=== PATIENT | female | born 1950 | race Caucasian/White ===

== ENCOUNTER 2016-12-15 12:44 | Emergency (ER) | payer MEDICARE ==
[~2016-12-15] VITALS: Ht 162.6 cm; Wt 67.1 kg
[~2016-12-15 12:44] MED LIST: ALPR.5 PO; GLUC500C5 PO; MELAPOW2; MULT-135 PO; NAPR220T95 PO; OMEP20CA2; RED600TA; TOPR25TA PO; VITATAB56 PO
[2016-12-15 12:53] VITALS: BP 169/80; PULSE 87; RESP 18; TEMP 98.8; O2SAT 99
--- NOTE | 2016-12-15 13:22 | PD ---
HPI Chief Complaint: Respiratory Symptoms Time Seen by Provider: 13:12 Travel History International Travel<30 days: No Contact w/Intl Traveler<30days: No Traveled to known affect area: No History of Present Illness HPI This patient woke up this morning feeling anxious. She complained of some shortness of breath and nausea and headache and achiness throughout. Symptoms severity was moderate. A lot of the symptoms have resolved. No cough or fever or hemoptysis or chest pain. Symptoms severity at this time is mild. No alleviating factors. Duration 4 hours PFSH Past Medical History Anxiety: Yes Heart Rhythm Problems: Yes Cancer: No Cardiovascular Problems: Yes (MITRAL VALVE REGURG., TACHYARRHYTHMIA, HX PE) Diabetes: No Diminished Hearing: No Endocrine: No Gastrointestinal Disorders: Yes (GERD) GERD: Yes Genitourinary: No Headaches: Yes Hepatitis: No Hiatal Hernia: Yes (SMALL) Hypertension: No Immune Disorder: No Medical other: No Musculoskeletal: Yes (ARTHRITIS, OSTEOPENIA) Neurologic: Yes (PAIN REBECCA. 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 / ACDF C4 C5 C6) Social History Alcohol Use: Yes (2 x a week) Tobacco Use: No (quit 15 years) Substance Use: No Allergies-Medications (Allergen,Severity, Reaction): Coded Allergies: codeine (Unverified Allergy, Unknown, NAUSEA, VOMITTING, 12/15/16) meperidine (Unverified Allergy, Unknown, NAUSEA, VOMITTING, 12/15/16) Reported Meds & Prescriptions Reported Meds & Active Scripts Active Reported Xanax (Alprazolam) 0.5 Mg Tab 0.5 Mg PO Q4H PRN Toprol XL (Metoprolol Succinate) 25 Mg Tab 25 Mg PO DAILY Review of Systems General / Constitutional: No: Fever Eyes: No: Visual changes HENT: Positive: Headaches Cardiovascular: No: Chest Pain or Discomfort Respiratory: Positive: Shortness of Breath Gastrointestinal: Positive: Nausea, No: Abdominal Pain Genitourinary: No: Dysuria Musculoskeletal: Positive: Myalgias, Cramping, No: Pain Skin: No Rash Neurologic: No: Weakness Psychiatric: No: Depression Endocrine: No: Polydipsia Hematologic/Lymphatic: No: Easy Bruising Physical Exam Narrative GENERAL: Well-nourished, well-developed patient in no apparent distress. SKIN: Focused skin assessment reveals no rash and nodules. Skin is Warm and dry. HEAD: Atraumatic. Normocephalic. EYES: Pupils equal and round. No scleral icterus. No injection or drainage. ENT: No nasal bleeding or discharge. Mucous membranes pink and moist. NECK: Trachea midline. No JVD. CARDIOVASCULAR: Regular rate and rhythm. No murmur appreciated. RESPIRATORY: No accessory muscle use. Clear to auscultation. Breath sounds equal bilaterally. GASTROINTESTINAL: Abdomen soft, non-tender, nondistended. Hepatic and splenic margins not palpable. MUSCULOSKELETAL: No obvious deformities. No clubbing. No cyanosis. No edema. NEUROLOGICAL: Awake and alert. No obvious cranial nerve deficits. Motor grossly within normal limits. Normal speech. PSYCHIATRIC: Anxious mood and affect; insight and judgment normal. Data Data Last Documented VS Vital Signs Date Time Temp Pulse Resp B/P (MAP) Pulse Ox O2 Delivery O2 Flow Rate FiO2 12/15/16 15:06 73 16 128/73 (91) 96 12/15/16 12:53 98.8 Orders Orders Chest, Single Ap (12/15/16 ) [facility] Medical Decision Making Medical Screen Exam Complete: Yes Emergency Medical Condition: Yes Medical Record Reviewed: Yes Differential Diagnosis Pneumothorax, pleural effusion, panic attack, anxiety Narrative Course I have reviewed the patient's electronic medical record. Reviewed her chest x-ray, shows nothing emergent. Radiologist notation has been read. No clinical suspicion of CHF She has clear lungs with room air saturation of 100% without tachycardia or fever I don't have any clinical suspicion of PE I think some of her symptoms are anxiety driven. Stable for outpatient follow- up Diagnosis Primary Impression: Shortness of breath Additional Impressions: Elevated blood pressure reading Anxiety Additional Instructions: The patient was advised to follow up with their physician and return if they worsen. Med/Other Pt SpecificInfo: Other Disposition: 01 DISCHARGE HOME Condition: Stable Jean Claude Stone MD Dec 15, 2016 13:22
--- NOTE | 2016-12-15 13:45 | RADRPT ---
EXAM DATE/TIME: 12/15/2016 13:37 [facility] COMPARISON: No previous studies available for comparison. INDICATIONS : Short of breath MEDICAL HISTORY : None. SURGICAL HISTORY : Spinal ENCOUNTER: Initial ACUITY: 1 day PAIN SCORE: 0/10 LOCATION: Bilateral chest FINDINGS: Mild interstitial prominence is present. The cardiomediastinal contours are unremarkable. Osseous s tructures are intact. CONCLUSION: Mild interstitial prominence mostly in the bases without other findings of congestive failure. Dennis Rodriges MD FACR on December 15, 2016 at 13:42 Board Certified Radiologist. This report was verified electronically.
[2016-12-15 15:06] VITALS: BP 128/73; PULSE 73; RESP 16; O2SAT 96
== END 2016-12-15 15:30 | disposition home or self-care (01) ==
LOC: PHED 12:44
DX: R06.02 Shortness of breath (principal); R03.0 Elevated blood-pressure reading, without diagnosis of hypertension; F41.9 Anxiety disorder, unspecified; R11.0 Nausea; R51 Headache; M79.1 Myalgia; E07.9 Disorder of thyroid, unspecified; Z86.59 Personal history of other mental and behavioral disorders; Z86.79 Personal history of other diseases of the circulatory system; Z87.19 Personal history of other diseases of the digestive system; Z87.39 Personal history of other diseases of the musculoskeletal system and connective tissue; Z86.69 Personal history of other diseases of the nervous system and sense organs
CPT/HCPCS: 71010; 99283

== ENCOUNTER 2017-04-10 10:59 | Emergency (ER) | payer MEDICARE ==
[~2017-04-10] VITALS: Ht 162.6 cm; Wt 64.0 kg
[~2017-04-10 10:59] MED LIST changes: -GLUC500C5 PO; -MELAPOW2; -MULT-135 PO; -NAPR220T95 PO; -OMEP20CA2; -RED600TA; -VITATAB56 PO
[2017-04-10 11:12] VITALS: BP 121/69; PULSE 77; RESP 16; TEMP 97.6; O2SAT 98
[2017-04-10 11:36] VITALS: BP 139/78; PULSE 84; RESP 18; O2SAT 98
[2017-04-10] MEDS ORDERED: OMEP20TA93 PO (11:36)
[2017-04-10] MEDS ORDERED: AUGM875T3 PO (11:36)
[2017-04-10] MEDS ORDERED: SODIUM CHLOR 0.9% 1000 ML INJ 1,000 ML IV SCH (11:39)
[2017-04-10] MEDS ORDERED: ONDANSETRON HCL 4 MG/2 ML VIAL IVP ONE (11:45)
[2017-04-10] MEDS ORDERED: KETOROLAC TROMETHAMINE 30 MG/ML (IVP) VIAL IVP ONE (11:45)
[2017-04-10] MEDS ORDERED: MORPHINE SULFATE 4 MG/ML INJ IV PUSH ONE (11:45)
[2017-04-10] MEDS ORDERED: SODIUM CHLORIDE 0.9% FLUSH 10 ML FLUSH IV FLUSH PRN (11:45)
[2017-04-10 11:59] VITALS: O2SAT 98
[2017-04-10 12:21] VITALS: BP 134/61; PULSE 79; RESP 18; O2SAT 96
[2017-04-10 12:25] LABS: CHLORIDE 106 MEQ/L (98-107); SODIUM (NA) 140 MEQ/L (136-145)
[2017-04-10 12:26] LABS: AUTOMATED NEUTROPHIL # 3.3 TH/MM3 (1.8-7.7); BASOPHIL # 0.1 TH/MM3 (0-0.2); BASOPHIL % 0.9 % (0.0-2.0); EOSINOPHIL # 0.2 TH/MM3 (0-0.4); EOSINOPHIL % 4.1 % (0.0-4.0); HEMATOCRIT 41.4 % (35.0-46.0); HEMOGLOBIN 13.3 GM/DL (11.6-15.3); LYMPH % 32.7 % (9.0-44.0); MEAN CELL VOLUME 93.7 FL (80.0-100.0); MEAN CORPUSCULAR HEMOGLOBIN 30.1 PG (27.0-34.0); MEAN CORPUSCULAR HGB CONC 32.1 % (32.0-36.0); MEAN PLATELET VOLUME 9.1 FL (7.0-11.0); MONO % 8.4 % (0.0-8.0); MONOCYTE # 0.5 TH/MM3 (0-0.9); NEUT % 53.9 % (16.0-70.0); PLATELET COUNT 236 TH/MM3 (150-450); RED BLOOD COUNT 4.41 MIL/MM3 (4.00-5.30); RED CELL DISTRIBUTION WIDTH 14.2 % (11.6-17.2); WHITE BLOOD COUNT 6.1 TH/MM3 (4.0-11.0)
[2017-04-10 12:29] LABS: ALBUMIN 3.8 GM/DL (3.4-5.0); BICARBONATE 27.2 MEQ/L (21.0-32.0); BLOOD UREA NITROGEN 12 MG/DL (7-18); CALCIUM 9.2 MG/DL (8.5-10.1); GLUCOSE,RANDOM 97 MG/DL (74-106)
[2017-04-10 12:30] LABS: INTERNATIONAL NORMALIZED RATIO 0.9 RATIO; PROTHROMBIN TIME - PATIENT 9.6 SEC (9.8-11.6)
[2017-04-10 12:32] LABS: ALT (GPT) 37 U/L (10-53); AST (GOT) 32 U/L (15-37)
[2017-04-10 12:33] LABS: CREATININE 0.67 MG/DL (0.50-1.00); GLOMERULAR FILTRATION RATE 88 ML/MIN (>89)
[2017-04-10 12:33] LABS: BILIRUBIN, URINE NEG (NEG); BLOOD, URINE NEG (NEG); GLUCOSE,URINE NEG (NEG); KETONE, URINE NEG (NEG); NITRITE,URINE NEG (NEG); PH, URINE 8.5 (5.0-8.5); URINE LEUKOCYTE ESTERASE NEG (NEG)
[2017-04-10 12:34] LABS: TOTAL BILIRUBIN ADULT 0.4 MG/DL (0.2-1.0); TOTAL PROTEIN 7.7 GM/DL (6.4-8.2)
[2017-04-10 12:34] LABS: URINE COLOR STRAW (YELLW/STRAW)
[2017-04-10 12:35] LABS: ALKALINE PHOSPHATASE 80 U/L (45-117)
[2017-04-10 12:41] LABS: SQUAMOUS EPITHELIAL CELL URINE 0-5 /hpf (0-5)
--- NOTE | 2017-04-10 13:06 | PD ---
HPI Chief Complaint: Abdominal Pain Time Seen by Provider: 11:27 Travel History International Travel<30 days: No Contact w/Intl Traveler<30days: No Traveled to known affect area: No History of Present Illness HPI Patient is a 67-year-old female who comes in complaining of left-sided abdominal pain. She says it radiates from her left flank into the left upper abdomen. She says it started today, and is severe. She says that she is unable to sit in any way that is comfortable due to the pain. She tried taking Xanax at home to help her relax and deal with the pain. She says this has not helped. She has not taken any pain medicine. She denies nausea or vomiting. She denies diarrhea and has been having normal bowel movements. She denies any urinary symptoms. She denies fever or chills. PFSH Past Medical History Anxiety: Yes Heart Rhythm Problems: Yes Cancer: No Cardiovascular Problems: Yes (MITRAL VALVE REGURG., TACHYARRHYTHMIA, HX PE) Diabetes: No Diminished Hearing: No Endocrine: No Gastrointestinal Disorders: Yes (GERD) GERD: Yes Genitourinary: No Headaches: Yes Hepatitis: No Hiatal Hernia: Yes (SMALL) Hypertension: No Immune Disorder: No Musculoskeletal: Yes (ARTHRITIS, OSTEOPENIA) Neurologic: Yes (PAIN REBECCA. 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 / ACDF C4 C5 C6) Social History Alcohol Use: Yes (2 x a week) Tobacco Use: No (quit 15 years) Substance Use: No Allergies-Medications (Allergen,Severity, Reaction): Coded Allergies: codeine (Unverified Allergy, Unknown, NAUSEA, VOMITTING, 04/10/17) meperidine (Unverified Allergy, Unknown, NAUSEA, VOMITTING, 04/10/17) Reported Meds & Prescriptions Reported Meds & Active Scripts Active Reported Omeprazole 20 Mg Tab 20 Mg PO DAILY Augmentin (Amoxicillin-Clavulanate) 875-125 Mg Tab 1 Tab PO BID Review of Systems Except as stated in HPI: all other systems reviewed are Neg General / Constitutional: No: Fever, Chills HENT: No: Headaches, Lightheadedness Cardiovascular: No: Chest Pain or Discomfort Respiratory: No: Shortness of Breath Gastrointestinal: Positive: Abdominal Pain, No: Nausea, Vomiting Genitourinary: Positive: Flank Pain, No: Dysuria Musculoskeletal: No: Myalgias, Edema Skin: No Rash Neurologic: No: Weakness, Dizziness Physical Exam Narrative GENERAL: Awake and alert, in no acute distress. SKIN: Focused skin assessment warm/dry. No wounds or signs of infection. HEAD: Atraumatic. Normocephalic. EYES: Pupils equal and round. No scleral icterus. ENT: No nasal bleeding or discharge. Mucous membranes pink and moist. NECK: Trachea midline. No JVD. CARDIOVASCULAR: Regular rate and rhythm. No murmur appreciated. RESPIRATORY: No accessory muscle use. Clear to auscultation. Breath sounds equal bilaterally. GASTROINTESTINAL: Abdomen soft, nondistended. Tender to palpation of the left upper quadrant. No rebound or guarding. MUSCULOSKELETAL: No obvious deformities. No clubbing. No cyanosis. No edema. NEUROLOGICAL: Awake and alert. No obvious cranial nerve deficits. Motor grossly within normal limits. Normal speech. PSYCHIATRIC: Appropriate mood and affect; insight and judgment normal. Data Data Last Documented VS Vital Signs Date Time Temp Pulse Resp B/P (MAP) Pulse Ox O2 Delivery O2 Flow Rate FiO2 04/10/17 13:27 73 18 109/59 (76) 98 Room Air 04/10/17 11:12 97.6 Orders Orders Urinalysis - C+S If Indicated (04/10/17 11:01) Complete Blood Count With Diff (04/10/17 11:39) Comprehensive Metabolic Panel (04/10/17 11:39) Prothrombin Time / Inr (Pt) (04/10/17 11:39) Act Partial Throm Time (Ptt) (04/10/17 11:39) Ct Abd/Pel W/O Iv Contrast (04/10/17 11:39) Iv Access Insert/Monitor (04/10/17 11:39) Ecg Monitoring (04/10/17 11:39) Oximetry (04/10/17 11:39) Morphine Inj (Morphine Inj) (04/10/17 11:45) Ondansetron Inj (Zofran Inj) (04/10/17 11:45) Sodium Chlor 0.9% 1000 Ml Inj (Ns 1000 M (04/10/17 11:39) Sodium Chloride 0.9% Flush (Ns Flush) (04/10/17 11:45) Ketorolac Inj (Toradol Inj) (04/10/17 11:45) Labs Laboratory Tests Test 04/10/17 11:55 04/10/17 12:10 White Blood Count 6.1 TH/MM3 Red Blood Count 4.41 MIL/MM3 Hemoglobin 13.3 GM/DL Hematocrit 41.4 % Mean Corpuscular Volume 93.7 FL Mean Corpuscular Hemoglobin 30.1 PG Mean Corpuscular Hemoglobin Concent 32.1 % Red Cell Distribution Width 14.2 % Platelet Count 236 TH/MM3 Mean Platelet Volume 9.1 FL Neutrophils (%) (Auto) 53.9 % Lymphocytes (%) (Auto) 32.7 % Monocytes (%) (Auto) 8.4 % Eosinophils (%) (Auto) 4.1 % Basophils (%) (Auto) 0.9 % Neutrophils # (Auto) 3.3 TH/MM3 Lymphocytes # (Auto) 2.0 TH/MM3 Monocytes # (Auto) 0.5 TH/MM3 Eosinophils # (Auto) 0.2 TH/MM3 Basophils # (Auto) 0.1 TH/MM3 CBC Comment DIFF FINAL Differential Comment Prothrombin Time 9.6 SEC Prothromb Time International Ratio 0.9 RATIO Activated Partial Thromboplast Time 28.2 SEC Blood Urea Nitrogen 12 MG/DL Creatinine 0.67 MG/DL Random Glucose 97 MG/DL Total Protein 7.7 GM/DL Albumin 3.8 GM/DL Calcium Level 9.2 MG/DL Alkaline Phosphatase 80 U/L Aspartate Amino Transf (AST/SGOT) 32 U/L Alanine Aminotransferase (ALT/SGPT) 37 U/L Total Bilirubin 0.4 MG/DL Sodium Level 140 MEQ/L Potassium Level 4.3 MEQ/L Chloride Level 106 MEQ/L Carbon Dioxide Level 27.2 MEQ/L Anion Gap 7 MEQ/L Estimat Glomerular Filtration Rate 88 ML/MIN Urine Collection Type CLEAN CATCH Urine Color STRAW Urine Turbidity CLEAR Urine pH 8.5 Urine Specific [place] 1.005 Urine Protein NEG mg/dL Urine Glucose (UA) NEG mg/dL Urine Ketones NEG mg/dL Urine Occult Blood NEG Urine Nitrite NEG Urine Bilirubin NEG Urine Leukocyte Esterase NEG Urine Squamous Epithelial Cells 0-5 /hpf Microscopic Urinalysis Comment CULT NOT INDICATED MDM Medical Decision Making Medical Screen Exam Complete: Yes Emergency Medical Condition: Yes Medical Record Reviewed: Yes Differential Diagnosis UTI versus pyelonephritis versus renal stone versus diverticulitis versus colitis Narrative Course Patient is a 67-year-old female who comes in complaining of left side pain. Exam shows some tenderness to left upper quadrant. IV established, labs sent. Labs show no acute abnormalities. CT abdomen and pelvis performed shows no acute abnormalities. Patient given IV fluids, morphine, Zofran. She reports feeling better. This is likely a muscle strain as she says the pain mostly comes on with moving. She'll be discharged with prescriptions for pain medicine. Advised to take Aleve at home. Advised follow-up with her doctor. Advised to return to the ED as needed for any worsening symptoms. Diagnosis Primary Impression: Abdominal pain Qualified Codes: R10.12 - Left upper quadrant pain Additional Impression: Muscle strain Patient Instructions: Abdominal Pain (ED), General Instructions, Muscle Strain (ED) Additional Instructions: Take pain medicine as needed. Follow-up with your doctor. Return to the ED as needed for any worsening symptoms. Scripts Cyclobenzaprine (Flexeril) 10 Mg Tab 10 MG PO TID for Muscle Spasm, #10 TAB 0 Refills Prov: Lucila Otero MD 04/10/17 Hydrocodone-Acetaminophen Liq (Hydrocodone-Acetaminophen Liq) 7.5-325 Mg/15 Ml Soln 10 ML PO Q6H Y for PAIN for 3 Days, #120 ML 0 Refills Prov: Lucila Otero MD 04/10/17 Disposition: 01 DISCHARGE HOME Condition: Stable Lucila Otero MD Apr 10, 2017 13:06
--- NOTE | 2017-04-10 13:11 | RADRPT ---
EXAM DATE/TIME: 04/10/2017 12:46 [facility] COMPARISON: No previous studies available for comparison. INDICATIONS : Left upper quadrant/flank pain. ORAL CONTRAST: No oral contrast ingested. RADIATION DOSE: 13.15 CTDIvol (mGy) MEDICAL HISTORY : Hernia, hiatal. SURGICAL HISTORY : Hysterectomy. ENCOUNTER: Initial ACUITY: 1 day PAIN SCALE: 7/10 LOCATION: Bilateral flank TECHNIQUE: Volumetric scanning of the abdomen and pelvis was performed. Using automated exposure control and ad justment of the mA and/or kV according to patient size, radiation dose was kept as low as reasonably achievable to obtain optimal diagnostic quality images. DICOM format image data is available electro nically for review and comparison. FINDINGS: LOWER LUNGS: The visualized lower lungs are clear. LIVER: Homogeneous density without lesion. There is no dilation of the biliary tree. No calcified gallston es. SPLEEN: Normal size without lesion. PANCREAS: Within normal limits. KIDNEYS: Normal in size and shape. There is no mass, stone, or hydronephrosis. ADRENAL GLANDS: Adreniform enlargement of the adrenal glands. VASCULAR: There is no aortic aneurysm. BOWEL/MESENTERY: The stomach, small bowel, and colon demonstrate no acute abnormality. Scattered colonic diverticula without significant inflammatory change to suggest diverticulitis. There is no free intraperitoneal a ir or fluid. ABDOMINAL WALL: Small fat containing periumbilical intra-abdominal wall hernia. RETROPERITONEUM: There is no lymphadenopathy. BLADDER: No wall thickening or mass. REPRODUCTIVE: Within normal limits. INGUINAL: There is no lymphadenopathy or hernia. MUSCULOSKELETAL: Within normal limits for patient age. CONCLUSION: 1. No definitive acute CT abnormality to explain patient's left sided abdominal pain. Specifically, n o evidence for radiopaque renal calculi or obstructive uropathy. 2. Ancillary findings include colonic diverticulosis and small periumbilical fat-containing anterior abdominal wall hernia. Lee Shirley MD on April 10, 2017 at 13:01 Board Certified Radiologist. This report was verified electronically.
[2017-04-10 13:27] VITALS: BP 109/59; PULSE 73; RESP 18; O2SAT 98
[2017-04-10] MEDS ORDERED: CYCL10TA PO (13:56)
[2017-04-10] MEDS ORDERED: HYDR1SOL3 PO (13:56)
== END 2017-04-10 14:27 | disposition home or self-care (01) ==
LOC: PHED 10:59
DX: S39.011A Strain of muscle, fascia and tendon of abdomen, initial encounter (principal); K57.30 Diverticulosis of large intestine without perforation or abscess without bleeding; K42.9 Umbilical hernia without obstruction or gangrene; K43.9 Ventral hernia without obstruction or gangrene; F41.9 Anxiety disorder, unspecified; K21.9 Gastro-esophageal reflux disease without esophagitis; M19.90 Unspecified osteoarthritis, unspecified site; E07.9 Disorder of thyroid, unspecified; X58.XXXA Exposure to other specified factors, initial encounter
CPT/HCPCS: 74176; 80053; 81001; 85025; 85610; 85730; 96374; 96375; 99285; J1885; J2270; J2405; J7030